=== PATIENT | female | born 1990 | race Caucasian/White ===

== ENCOUNTER 2021-09-14 10:27 | Day surgery (SDC) | payer OTHER ==
[~2021-09-14] VITALS: Ht 165.1 cm; Wt 74.8 kg
[2021-09-14] MEDS ORDERED: LIDOCAINE 2% 100 MG/5 ML UJET TP ONE (14:43)
[2021-09-14] MEDS ORDERED: fentaNYL citrate 0.05 MG/ML VIAL ONE (14:43)
[2021-09-14] MEDS ORDERED: MIDAZOLAM 2 MG/2 ML VIAL ONE (15:09)
[2021-09-14] MEDS ORDERED: fentaNYL citrate 0.05 MG/ML VIAL IVP ONE (15:45)
[2021-09-14] MEDS ORDERED: MIDAZOLAM 2 MG/2 ML VIAL IVP ONE (15:45)
== END 2021-09-14 16:10 | disposition home or self-care (01) ==
LOC: MDS 10:27 → MMU 10:53 → MDS 16:10
PROVIDERS: ATTEND Internal Medicine Gastroenterology
DX: K62.5 Hemorrhage of anus and rectum (principal); K64.9 Unspecified hemorrhoids; Z20.822 Contact with and (suspected) exposure to COVID-19
CPT/HCPCS: 45378; 81025; 87426; J2250; J3010